=== PATIENT | male | born 1990 | race Hispanic/Latino ===

== ENCOUNTER 2021-02-12 00:38 | Emergency (ER) | payer SELFPAY ==
[2021-02-12] MEDS ORDERED: Lidocaine 1% w/Epinephrine 1:100K 20 ML VIAL ONE (02:46)
[2021-02-12] MEDS ORDERED: Boostrix 0.5 ML (Tdap) VIAL ONE (03:17)
== END 2021-02-12 03:59 | disposition home or self-care (01) ==
LOC: ERS 00:38
DX: S01.01XA Laceration without foreign body of scalp, initial encounter (principal); F17.210 Nicotine dependence, cigarettes, uncomplicated; Z23 Encounter for immunization; W10.9XXA Fall (on) (from) unspecified stairs and steps, initial encounter
CPT/HCPCS: 12002; 70450; 90471; 90715

== ENCOUNTER 2021-02-19 12:26 | Emergency (ER) | payer SELFPAY | END 2021-02-19 13:21 | disposition home or self-care (01) | LOC: ERS 12:26 | DX: S01.01XD Laceration without foreign body of scalp, subsequent encounter (principal); F17.210 Nicotine dependence, cigarettes, uncomplicated; W10.9XXD Fall (on) (from) unspecified stairs and steps, subsequent encounter ==

== ENCOUNTER 2022-02-19 03:14 | Emergency (ER) | payer SELFPAY ==
[2022-02-19] MEDS ORDERED: CEFAZOLIN 1 GM VIAL ONE (03:41)
[2022-02-19] MEDS ORDERED: Morphine 4 MG/ML VIAL ONE (03:41)
[2022-02-19] MEDS ORDERED: Boostrix 0.5 ML (Tdap) VIAL ONE (03:41)
[2022-02-19] MEDS ORDERED: Ketorolac Tromethamine 30 MG/ML VIAL ONE (03:41)
[2022-02-19] MEDS ORDERED: Lidocaine 1% w/Epinephrine 1:100K 20 ML VIAL ONE (03:41)
== END 2022-02-19 05:45 | disposition left against medical advice (07) ==
LOC: ERS 03:14
DX: S06.0X0A Concussion without loss of consciousness, initial encounter (principal); S01.01XA Laceration without foreign body of scalp, initial encounter; F17.210 Nicotine dependence, cigarettes, uncomplicated; Y04.8XXA Assault by other bodily force, initial encounter; Y93.01 Activity, walking, marching and hiking; Y92.29 Other specified public building as the place of occurrence of the external cause
CPT/HCPCS: 12001; 70450; 70486; 90471; 90715; 96372; J0690; J1885; J2270

== ENCOUNTER 2022-02-25 16:43 | Emergency (ER) | payer SELFPAY | END 2022-02-25 17:50 | disposition home or self-care (01) | LOC: ERS 16:43 | DX: S01.01XD Laceration without foreign body of scalp, subsequent encounter (principal); F17.210 Nicotine dependence, cigarettes, uncomplicated ==

== ENCOUNTER 2022-10-21 02:26 | Emergency (ER) | payer OTHER, SELFPAY | END 2022-10-21 03:10 | disposition home or self-care (01) | LOC: ERS 02:26 | DX: S60.211A Contusion of right wrist, initial encounter (principal); F10.129 Alcohol abuse with intoxication, unspecified; F17.210 Nicotine dependence, cigarettes, uncomplicated; V49.9XXA Car occupant (driver) (passenger) injured in unspecified traffic accident, initial encounter ==